=== PATIENT | female | born 1995 | race African-American/Black ===

== ENCOUNTER 2018-09-18 15:54 | Emergency (ER) | payer MEDICAID ==
[~2018-09-18] VITALS: Ht 157.5 cm; Wt 45.3 kg
[2018-09-18] MEDS ORDERED: ALBUTEROL (0.083%) 2.5MG/3ML NEB HHN ONE ×2 (16:45→21:15)
[2018-09-18] MEDS ORDERED: IPRATROPIUM BROMIDE (0.02%) 0.5MG/2.5ML NEB HHN ONE ×2 (16:45→21:15)
[2018-09-18] MEDS ORDERED: METHYLPREDNISOLONE SOD SUCC 125 MG/2 ML VIAL IV ONE (21:15)
[2018-09-18] MEDS ORDERED: KETOROLAC 30MG/ML VIAL IV ONE (21:15)
[2018-09-19 00:20] VITALS: BP 115/70
== END 2018-09-19 00:28 | disposition home or self-care (01) ==
LOC: ER 15:54
DX: S20.219A Contusion of unspecified front wall of thorax, initial encounter (principal); J45.901 Unspecified asthma with (acute) exacerbation; F32.9 Major depressive disorder, single episode, unspecified; F41.9 Anxiety disorder, unspecified; Y04.0XXA Assault by unarmed brawl or fight, initial encounter; Y93.89 Activity, other specified; Y92.018 Other place in single-family (private) house as the place of occurrence of the external cause
CPT/HCPCS: 70450; 70486; 71045; 71111; 81025; 93005; 94640; 96374; 96375; 99284; J1885; J2930; J7611

== ENCOUNTER 2022-06-24 18:24 | Emergency (ER) | payer MEDICAID ==
[~2022-06-24] VITALS: Ht 167.6 cm; Wt 55.0 kg
[2022-06-24 19:23] LABS: BASOPHILS % 0.5 % (0.0-2.0); RED BLOOD CELL COUNT 5.02 mill/uL (4.2-5.4)
[2022-06-24 19:25] LABS: EOSINOPHILS % 0.7 % (0.0-5.0); HEMATOCRIT. 42.1 % (36.0-48.0); HEMOGLOBIN. 13.5 g/dL (12.0-16.0); MEAN CORPUSCULAR HEMOGLOBIN 26.9 pg (28.0-32.0); MEAN CORPUSCULAR VOLUME 83.9 fL (81.0-99.0); MEAN PLATELET VOLUME 8.9 fl (7.4-10.4); MONOCYTES % 6.1 % (2.0-8.0); NEUTROPHILS % 47.7 % (40.0-76.0); PLATELET 266 x1000/uL (130-400); RED CELL DISTRIBUTION WIDTH 13.7 % (11.6-14.6)
[2022-06-24 19:31] LABS: INR 1.2; PROTHROMBIN TIME 12.5 sec (9.6-11.0)
[2022-06-24 19:37] LABS: CHLORIDE 107 mEq/L (98-107)
[2022-06-24 19:38] LABS: HCG SCREEN NEGATIVE
[2022-06-24 22:49] VITALS: BP 122/72
== END 2022-06-24 22:52 | disposition left against medical advice (07) ==
LOC: ER 18:24
DX: J02.9 Acute pharyngitis, unspecified (principal); F41.9 Anxiety disorder, unspecified; J45.909 Unspecified asthma, uncomplicated; F32.9 Major depressive disorder, single episode, unspecified; Z88.1 Allergy status to other antibiotic agents; Z88.8 Allergy status to other drugs, medicaments and biological substances; Z98.890 Other specified postprocedural states
CPT/HCPCS: 36415; 71045; 80053; 84703; 85025; 99284